=== PATIENT | female | born 1970 | race Caucasian/White ===

== ENCOUNTER 2016-10-08 21:32 | Emergency (ER) | payer OTHER ==
[~2016-10-08 21:32] MED LIST: ASPIRIN EC81 MG PO; AVELOX400 MG PO; FERROUS SULFAT325 M2 PO; FLOVENT 110 MC7.9 GM INH; LOPRESSOR 25 MG25 MG PO; PROTONIX40 MG PO; SYNTHROID125 MCG PO; THERAGRAN M TAB1 EA PO; VENTOLIN HFA 66.7 GM INH; ZYRTEC10 MG PO
== END 2016-10-09 03:04 | disposition home or self-care (01) ==
LOC: ER1 21:32
DX: S93.402A Sprain of unspecified ligament of left ankle, initial encounter (principal); S93.602A Unspecified sprain of left foot, initial encounter; I10 Essential (primary) hypertension; E03.9 Hypothyroidism, unspecified; Z88.1 Allergy status to other antibiotic agents; Z88.6 Allergy status to analgesic agent; Z88.8 Allergy status to other drugs, medicaments and biological substances; X50.1XXA Overexertion from prolonged static or awkward postures, initial encounter
CPT/HCPCS: 73552; 73590; 73610; 73630; 99283